=== PATIENT | male | born 1960 | race American Indian/Alaskan Native ===

== ENCOUNTER 2017-06-24 10:32 | Inpatient (IN) | payer OTHER ==
[~2017-06-24] VITALS: Ht 167.6 cm; Wt 77.5 kg
--- NOTE | ~2017-06-24 | O ---
[facility] [place] [address] OPERATIVE REPORT Name: NEYDA RADFORD Steve Room #: 150-9 [facility] IN ..#: [id number] Admission: 06/27/17 Attend Phys: David Ryan MD Discharge: Date of : 56 Report #: [id number] THIS REPORT FOR: //name// CC: Isaac Ryan DATE OF SERVICE: 06/27/2017 PREOPERATIVE DIAGNOSIS: AICD/pacemaker malposition. FINAL DIAGNOSIS: AICD/pacemaker malposition. OPERATIVE PROCEDURE PERFORMED: Revision of AICD pacemaker with generator change. SURGEON: David Ryan M.D. DIRECTOR OF HOME CARE HOSPICE: Natalie Trejo. ANESTHESIA: General. OPERATIVE INDICATIONS: The patient is a 57-year-old male with a known history of cardiomyopathy and a prior AICD/generator placement. The patient previously had his generator placed beneath the pectoralis major muscle due to his relative paucity of subcutaneous tissues. This generator was placed several years ago; however, recently after a particular event, the generator slipped into his axilla and was quite bothersome to him. He is thus brought to the operating room now for revision of this pacemaker that has become malpositioned and also generator change as the expected life of this present generator is just a little over one year. OPERATIVE SUMMARY: The patient was brought in to the operating room, placed on the OR table in supine position. After anesthesia was induced via the general endotracheal route and monitoring lines have been positioned, the patient was prepped and draped in sterile fashion with chlorhexidine. I entered the prior skin incision just underneath the clavicle laterally, dissected down through the subcutaneous tissues, which there was not much of, then created a subcutaneous pocket. I then dissected down between the pectoralis major fibers and painstakingly dissected free all of the leads. I then entered the generator pocket and opened it up and delivered the generator. Significant dissection was required mainly using electrocautery for this. We then placed a 19 drain below the pectoral muscle where the prior pocket had been and brought it out through a separate stab incision. The muscle was then reapproximated with Vicryl suture. Next, we placed the generator in the pocket. There was one small area on the atrial lead where the insulation had become defective and we placed a small silicone patch over this site. Once all electrical testing had been performed, [facility] [address] [place] [address] OPERATIVE REPORT Name: NEYDA RADFORD Room #: 150-9 [facility] IN ..#: [id number] Admission: 06/27/17 Attend Phys: David Ryan MD Discharge: Date of : 56 Report #: [id number] it was deemed appropriate. The wound was then closed in multiple layers with absorbable suture. The procedure was completed. The patient was taken to the postanesthesia care unit in stable condition. Blood loss was less than 10 mL. There were no intraoperative complications noted. All sponge and needle counts were reported as correct. By: [id number] /nt
[~2017-06-24 10:32] MED LIST: ALBUTEROL2.5 MG/31 INH; ASPIR 8181 MG PO; CARDIZEM CD120 MG PO; HYDROCODON-ACE1 EAC5 PO; LISINOPRIL20 MG PO; MS CONTIN 30 MG30 MG PO; PROAIR HFA8.5 GM INH; VALIUM5 MG PO
[2017-06-27] VITALS (13 sets, daily range): BP systolic 96–137; BP diastolic 60–76
[2017-06-27 08:54] LABS: URINE BILIRUBIN NEGATIVE (Negative); URINE BLOOD NEGATIVE (Negative); URINE CLARITY CLEAR; URINE COLOR YELLOW; URINE GLUCOSE-RANDOM* NEGATIVE (Negative); URINE KETONES NEGATIVE (Negative); URINE LEUKOCYTES NEGATIVE (Negative); URINE NITRITE NEGATIVE (Negative); URINE PROTEIN (DIPSTICK) NEGATIVE (Negative); URINE SPECIFIC GRAVITY 1.015 (1.005-1.035); URINE UROBILINOGEN 0.2 E.U./dl (0.2-1.0)
[2017-06-27 09:36] LABS: HEMATOCRIT 41.7 % (42.0-52.0); HEMOGLOBIN 13.7 gm/dL (14.0-18.0); MCH 29.2 pg (26.0-34.0); MCHC 32.8 g/dL (28.0-37.0); RBC 4.69 mil/uL (4.50-6.00); WBC 7.3 thou/uL (4.0-11.0)
[2017-06-27 09:44] LABS: CREATININE 0.9 mg/dL (0.7-1.3); POTASSIUM 4.3 mmol/L (3.5-5.1)
[2017-06-27 09:50] LABS: APTT 29.2 Seconds (24.5-32.8); PROTIME 9.8 Seconds (9.3-11.4)
[2017-06-28 04:18] VITALS: BP 112/70
[2017-06-28 07:56] VITALS: BP 122/79
[2017-06-28 11:35] VITALS: BP 122/79
== END 2017-06-28 12:27 | disposition home or self-care (01) | DRG 261 ==
LOC: PRE 10:32 → TBA 06-27 05:38 → 2N 06-27 05:38 → PRE 06-27 15:18 → 2N 06-27 15:21 → ENTRNSPT 06-28 11:46 → EDTRNSPTSTS 06-28 11:48 → 2N 06-28 12:27
PROVIDERS: Thoracic Surgery (Cardiothoracic Vascular Surgery)
PROC: 0JWT0PZ Revision of Cardiac Rhythm Related Device in Trunk Subcutaneous Tissue and Fascia, Open Approach (ICD-10-PCS; principal; 2017-06-27)
DX: T82.121A Displacement of cardiac pulse generator (battery), initial encounter (principal); I42.9 Cardiomyopathy, unspecified; Y83.8 Other surgical procedures as the cause of abnormal reaction of the patient, or of later complication, without mention of misadventure at the time of the procedure; I48.0 Paroxysmal atrial fibrillation; I10 Essential (primary) hypertension; J44.9 Chronic obstructive pulmonary disease, unspecified; Z79.899 Other long term (current) drug therapy; Y92.89 Other specified places as the place of occurrence of the external cause
CPT/HCPCS: 10081; 50010; 50101; 50386; 50417; 50455; 51301; 51536; 53040; 53358; 56524; 56526; 56528; 62110; 62900; 70005